=== PATIENT | female | born 1980 | race Caucasian/White ===

== ENCOUNTER 2019-03-25 17:25 | Emergency (ER) | payer BC, MEDICAID ==
[~2019-03-25] VITALS: Ht 166.4 cm; Wt 93.0 kg
[2019-03-25 18:20] LABS: CLARITY,URINE SLIGHTLY CLOUDY (Clear); COLOR,URINE YELLOW (Yellow); GLUCOSE, URINE NEGATIVE (Neg); KETONES,URINE NEGATIVE (Neg); LEUKOCYTE ESTERASE ,URINE NEGATIVE (Neg); NITRITES, URINE NEGATIVE (Neg); OCCULT BLOOD,URINE NEGATIVE (Neg); PH,URINE 6.5 (4.8-8.0); PROTEIN,URINE NEGATIVE (Neg); UA COLLECTION TYPE CLN CATCH MIDSTREAM
[2019-03-25 18:26] LABS: MUCUS STRANDS MANY /LPF (Neg)
[2019-03-25 18:27] LABS: HYALINE CASTS 0-3 /LPF (NEGATIVE); SQUAMOUS EPITHELIAL CELL,UR MANY /LPF (FEW); URINE HCG NEGATIVE (NEG)
[2019-03-25 18:28] LABS: BASOPHILS # (AUTO) 0.1 X10'3 (0-0.2); BASOPHILS % (AUTO) 0.5 % (0-1); EOSINOPHILS # (AUTO) 0.1 X10'3 (0-0.9); EOSINOPHILS % (AUTO) 0.4 % (0-6); HEMATOCRIT 39.9 % (35.0-45.0); LYMPHOCYTES # (AUTO) 1.5 X10'3 (1.1-4.8); LYMPHOCYTES % (AUTO) 10.8 % (21-51); MEAN CORPUSCULAR HEMOGLOBIN 32.2 PG (27.0-31.0); MEAN CORPUSCULAR VOLUME 91.9 FL (78-98); MEAN PLATELET VOLUME 7.1 FL (7.4-10.4); MONOCYTES # (AUTO) 0.6 X10'3 (0-0.9); MONOCYTES % (AUTO) 4.2 % (2-12); NEUTROPHILS # (AUTO) 11.8 X10'3 (1.8-7.7); NEUTROPHILS % (AUTO) 84.1 % (42-75); PLATELET COUNT 279 X10'3 (140-440); RED BLOOD COUNT 4.34 X10'6 (4.20-5.60); RED CELL DISTRIBUTION WIDTH 12.9 % (11.5-14.5)
[2019-03-25 18:30] LABS: BACTERIA,URINE FEW /HPF (Neg); RBC,URINE 0-2 /HPF (0-2)
[2019-03-25 18:32] LABS: TRANSITIONAL EPI CELLS,URINE MODERATE /HPF
[2019-03-25 18:34] LABS: WBC CLUMPS,URINE FEW /HPF (NEGATIVE)
[2019-03-25 18:37] LABS: ALANINE AMINOTRANSFERASE 33 U/L (12-78); ALBUMIN 3.4 G/DL (3.4-5.0); ALBUMIN/GLOBULIN RATIO 0.9 (1.1-1.5); ALKALINE PHOSPHATASE 103 IU/L (46-116); ANION GAP 6 (8-16); ASPARTATE AMINO TRANSFERASE 15 U/L (10-37); BILIRUBIN,TOTAL 0.3 MG/DL (0.1-1.0); BLOOD UREA NITROGEN 10 MG/DL (7-18); BUN/CREATININE RATIO 12.5 (6.6-38.0); CALCIUM 9.1 MG/DL (8.5-10.1); CHLORIDE 104 MMOL/L (99-107); GLUCOSE 129 MG/DL (70-104); LIPASE 74 U/L (73-393); SODIUM 140 MMOL/L (135-145); TOTAL CARBON DIOXIDE 29.7 MMOL/L (24-32); TOTAL PROTEIN 7.2 G/DL (6.4-8.2); eGFR 79 ML/MIN
--- NOTE | 2019-03-25 18:50 | NUR ---
URINE REJECTED FOR CULTURE D/T CONTAMINATION. PT INSTRUCTED TO PROVIDE NEW URINE SAMPLE AND PROPER INSTRUCTIONS ON CLEAN CATCH METHOD.
[2019-03-25] MEDS ORDERED: morphine 4 MG/ML inj SYRINge IV ONE (19:20)
[2019-03-25] MEDS ORDERED: ondansetron 4mg rapidly disintigrating tab PO ONE (19:20)
[2019-03-25] MEDS ORDERED: normal saline 1000ML IV soln IVB ONE (19:20)
[2019-03-25] MEDS ORDERED: ketorolac trometh. 30mg/ml inj. IV ONE (19:30)
--- NOTE | 2019-03-25 19:52 | NUR ---
PT BACK FROM CT - SHE HAS NOW BEEN MEDICATED AND IV FLUIDS ARE INFUSING. SHE STATES SHE STILL CAN'T URINATE AT THIS TIME.
[2019-03-25] MEDS ORDERED: ONDA4TAB6 PO (20:26)
[2019-03-25] MEDS ORDERED: IBUP-1984 PO (20:26)
[2019-03-25] MEDS ORDERED: FLO0.4C PO (20:26)
[2019-03-25 20:41] VITALS: BP 148/86
== END 2019-03-25 20:43 | disposition home or self-care (01) ==
LOC: ER 17:25
DX: N20.0 Calculus of kidney (principal); Z88.0 Allergy status to penicillin; Z88.2 Allergy status to sulfonamides; Z88.1 Allergy status to other antibiotic agents; Z88.8 Allergy status to other drugs, medicaments and biological substances; Z88.6 Allergy status to analgesic agent; Z79.899 Other long term (current) drug therapy; Z98.890 Other specified postprocedural states
CPT/HCPCS: 36415; 74176; 80053; 81001; 81025; 83690; 85025; 96374; 99284; J1885; J7030

== ENCOUNTER 2020-12-05 13:49 | Emergency (ER) | payer BC ==
[~2020-12-05 13:49] MED LIST: ONDA4TAB6 PO
== END 2020-12-05 18:22 | disposition left against medical advice (07) ==
LOC: ER 13:49
DX: M79.672 Pain in left foot (principal); Z53.21 Procedure and treatment not carried out due to patient leaving prior to being seen by health care provider

== ENCOUNTER 2024-03-31 15:44 | Outpatient (CLI) | payer BC | END 2024-03-31 23:59 | disposition home or self-care (01) | LOC: US 15:44 | PROVIDERS: ATTEND Family Medicine | DX: E04.2 Nontoxic multinodular goiter (principal) | CPT/HCPCS: 76536 ==